=== PATIENT | male | born 1985 | race Caucasian/White ===

== ENCOUNTER 2018-10-23 22:29 | Emergency (ER) | payer OTHER ==
[2018-10-23 22:52] VITALS: BMI 29.0
[2018-10-23] MEDS ORDERED: SODIUM CHLORIDE 1,000 ML IV STA (23:45)
[2018-10-23] MEDS ORDERED: ONDANSETRON 4 MG/2 ML VIAL IVPUSH ONE (23:45)
--- NOTE | 2018-10-23 23:45 | PDOC ---
History of Present Illness - General Chief Complaint: Nausea/Vomiting Stated Complaint: [id number] Time Seen by Provider: 10/23/18 23:44 History Source: Patient Exam Limitations: No Limitations - History of Present Illness Initial Comments: 10/24/18 01:43 33YOM, with no significant past medical history, who presents to the emergency department with, nonproductive cough, nasal congestion, nausea, vomiting, and chills x 1 day. Patient notes his cough and nasal congestion has been ongoing for 5 days initially onset while in vacation in the [place]. Upon his arrival home today, he endorses generalized malaise/weakness and nausea with an associated 7 episodes of NBNB emesis, diffuse abdominal pain, and subjective fever/chills. He notes taking NyQuil and Robitussin, without relief prompting his visit to the ER. +travel history, recently returned today from [place]. +sick contact, with similar respiratory sx. He denies any recent headache or dizziness. He denies any recent diarrhea or constipation. He denies any recent chest pain or shortness of breath. He denies any recent dysuria, frequency, urgency or hematuria. Allergies: NKDA Past surgical history: None reported. Social History: Nonsmoker. Denies EtOH use and recreational drug use. Constitutional: +Chills. +weakness/malaise HEENT: no headache or dizziness. +congestion. No visual/hearing disturbances. CVS: no cp or syncope. Resp: no sob. + cough. Gastrointestinal: +abdominal pain,+ nausea +vomiting. Genitourinary: no urinary sx, hematuria. MUSCULOSKELETAL: No joint pain and swelling. No neck or back pain. SKIN: no redness or skin changes, no discharge, no rash. No wounds. Hematologic: no easy bruising/bleeding. HEMATOLOGIC/LYMPHATIC: No anemia, easy bruising/bleeding, or history of blood clots. NEUROLOGIC: No headache, dizziness, LOC or altered mental status. No weakness, numbness or tingling. Allergic/Immunologic: no allergies All other systems reviewed and negative, or as documented in HPI. General: Well appearing, awake and alert, NAD. HEENT: NCAT, PERRL, EOMI, clear conjunctiva, anicteric, moist mucus membranes, clear oropharynx, no oral lesions.. Neck: neck supple, FROM; no meningeal signs Resp: CTAB, normal and even respirations, no respiratory distress CVS: +tachycardic., no murmurs, 2+ peripheral pulses throughout, no peripheral edema Abdomen: soft, NTND, no rebound or guarding. No CVAT. Back: nontender, normal inspection and ROM MSK: no edema, GONZALEZ x4, ROM intact. No clubbing or cyanosis. normal bulk and tone. Extremities: no calf tenderness Neuro: alert Skin: warm and well perfused, cap refill <2 sec, normal color Past History - Past Medical History Allergies/Adverse Reactions: Allergies Allergy/AdvReac Type Severity Reaction Status Date / Time No Known Allergies Allergy Verified 10/23/18 22:52 Home Medications: Ambulatory Orders Ondansetron [Zofran Odt -] 4 mg SL TID PRN #9 od.tablet 10/24/18 COPD: No - Suicide/Smoking/Psychosocial Hx Smoking History: Never smoked Have you smoked in the past 12 months: No Information on smoking cessation initiated: No Hx Alcohol Use: No Drug/Substance Use Hx: No *Physical Exam - Vital Signs Last Vital Signs Temp Pulse Resp BP Pulse Ox 100.2 F H 103 H 21 H 132/81 100 10/23/18 22:48 10/23/18 22:48 10/23/18 22:48 10/23/18 22:48 10/23/18 22:48 - Physical Exam Comments: 10/24/18 00:49 General: awake and alert, malaised appearing HEENT: NCAT, PERRL, EOMI, clear conjunctiva, anicteric, moist mucus membranes, clear oropharynx, no oral lesions.. Neck: neck supple, FROM, no meningeal signs Resp: CTAB, normal and even respirations, no respiratory distress CVS: +tachycardic, no murmurs, 2+ peripheral pulses throughout, no peripheral edema Abdomen: soft, NTND, no peritoneal signs. no CVAT. Back: nontender, normal inspection and ROM MSK: no edema, GONZALEZ x4, ROM intact. No clubbing or cyanosis. normal bulk and tone. Extremities: no calf tenderness Neuro: alert. Skin: warm and well perfused, cap refill <2 sec, normal color Moderate Sedation - Procedure Monitoring Vital Signs: Procedure Monitoring Vital Signs Temperature 100.2 F H 10/23/18 22:48 Pulse Rate 103 H 01/01/19 22:48 Respiratory Rate 21 H 10/23/18 22:48 Blood Pressure 132/81 10/23/18 22:48 O2 Sat by Pulse Oximetry (%) 100 10/23/18 22:48 ED Treatment Course - LABORATORY CBC & Chemistry Diagram: 10/24/18 00:30 10/24/18 00:30 Medical Decision Making - Medical Decision Making 10/24/18 00:50 See HPI for details DDx bronchitis, pna, viral syndrome, URI, influenza, dehydration, electrolyte/ metabolic derangements, bronchitis. pleurisy. Vital signs reviewed, +fever and tachycardia. Prior notes reviewed, including admissions, discharges and consultations. laboratory results and imaging reviewed, basic labs and lytes wnl, normal Lipase and LFTs. UA_+ketones, otherwise no s/s infection CXR_neg for infiltrate influenza_positive for flu A ED course: IVF, hydration, tylenol and zofran, with clinical improvement. VS repeated, normalizing. tolerating PO intake offered tamiflu, declined, as sx onset 1-5 days, worse over 1 day. which is appropriate continued supportive care and hydration, otc analgesia/antipyretics. avoid triggers, cover cough and wash hands/respiratory precautions at home. Dispo: Pt to be discharged in stable condition. Patient and family made aware of impression and plan, return precautions discussed (including but not limited to worsening pain or symptoms), fevers, or signs of infection, chest pain, respiratory distress, inability to tolerate oral intake, dehydration, syncope, or neurologic changes). Follow up with PMD and/or specialist as recommended, follow up information provided, take medications as instructed for duration of time. continue with supportive care, avoid triggers and precipitants. All questions answered to patient's satisfaction and expressed understanding and comfort with this. 10/24/18 02:43 10/24/18 03:01 *DC/Admit/Observation/Transfer Diagnosis at time of Disposition: Influenza A - Discharge Dispostion Disposition: HOME Condition at time of disposition: Improved Decision to Admit order: No - Prescriptions Prescriptions: Ondansetron [Zofran Odt -] 4 mg SL TID PRN #9 od.tablet PRN Reason: Nausea And/Or Vomiting - Referrals Referrals: [facility] [place] [facility] [Provider Group] [facility] - Patient Instructions Printed Discharge Instructions: DI for Influenza -- Adult Additional Instructions: Your laboratory / imaging results were normal, your chest xray was negative for infection or pneumonia. your influenza test was positive. you have declined tamiflu which is appropriate and the influenza will run its course (1-2 weeks) cover your cough salt water gargles and warm lemon tea is appropriate as well. minimize spread of infection given contagious nature, and cover your mouth and wash your hands adequately with soap and water. Stay well hydrated and rest. do not go out or back to work until your fever has cleared <100.4 for 24 hours. Follow up with your primary care physician as instructed, take your medications as instructed including zofran every 8 hours as needed for nausea. Return if worsening symptoms including fevers, headache, vomiting, visual or hearing disturbances, abdominal pain, chest pain, shortness of breath, respiratory distress, syncope/fainting, dehydration, inability to take things by mouth/vomiting, altered mental status, lethargy, or worsening concerning symptoms. your medications on discharge include_ side effects may include upset stomach, abdominal pain, vomiting, or diarrhea. do not drink alcohol with your medications. - Post Discharge Activity Forms/Work/School Notes: Back to Work - Attestations Physician Attestion: 10/24/18 03:01 I, Yeni Brice MD, attest that this document has been prepared under my direction and personally reviewed by me in its entirety. I further attest, that it accurately reflects all work, treatment, procedures and medical decision -making performed by me.
[2018-10-23] MEDS ORDERED: ACETAMINOPHEN 325 MG TABLET (FP) PO ONE (23:47)
[2018-10-24] MEDS ORDERED: ACETAMINOPHEN 325 MG TABLET (FP) ONE (00:18)
[2018-10-24] MEDS ORDERED: ONDANSETRON 4 MG/2 ML VIAL ONE (00:19)
[2018-10-24] MEDS ORDERED: ACETAMINOPHEN 1000 MG/100 ML VIAL (NON FORMULARY) IVPB ONE (00:39)
[2018-10-24] MEDS ORDERED: ACETAMINOPHEN INJECTION 100 ML IVPB ONE (00:41)
[2018-10-24 00:52] LABS: BASO % 0.5 % (0-2.0); EOS % 0.6 % (0-4.5); HEMATOCRIT 37.4 % (35.4-49); HEMOGLOBIN 13.6 GM/dL (11.7-16.9); LYMPH % 6.9 % (8-40); MCH 30.6 pg (25.7-33.7); MCHC 36.4 g/dl (32.0-35.9); MEAN CELL VOLUME 84.1 fl (80-96); MEAN PLT VOLUME 8.1 fl (7.5-11.1); MONO % 7.4 % (3.8-10.2); NEUT % 84.6 % (42.8-82.8); PLATELET COUNT 278 K/MM3 (134-434); RBC 4.44 M/mm3 (4.00-5.60); WHITE BLOOD COUNT 6.4 K/mm3 (4.0-10.0)
[2018-10-24 01:23] LABS: ALBUMIN 3.9 g/dl (3.4-5.0); ALK PHOS 56 U/L (45-117); ANION GAP 8 MMOL/L (8-16); BILIRUBIN,TOTAL 0.6 mg/dL (0.2-1); BLOOD UREA NITROGEN 8 mg/dL (7-18); CALCIUM 8.6 mg/dL (8.5-10.1); CHLORIDE 102 mmol/L (98-107); CO2 26 mmol/L (21-32); GLUCOSE,RANDOM 102 mg/dL (74-106); LIPASE 143 U/L (73-393); POTASSIUM 4.1 mmol/L (3.5-5.1); SGOT/AST 36 U/L (15-37); SGPT/ALT 26 U/L (13-61); SODIUM 136 mmol/L (136-145); TOT PROT 7.4 g/dl (6.4-8.2)
[2018-10-24 01:27] LABS: URINE APPEARANCE CLEAR; URINE BILIRUBIN NEGATIVE (<2.0 mg/dL); URINE COLOR YELLOW; URINE GLUCOSE (UA) NEGATIVE (NEGATIVE); URINE KETONE 2+ (NEGATIVE); URINE LEUK ESTERASE NEGATIVE (NEGATIVE); URINE NITRITE NEGATIVE (NEGATIVE); URINE PROTEIN NEGATIVE (NEGATIVE); URINE UROBILINOGEN NEGATIVE mg/dL (0.2-1.0)
[2018-10-24 01:59] VITALS: BP 123/85; PULSE 102; TEMP 99.2
== END 2018-10-24 03:27 | disposition home or self-care (01) ==
LOC: JER 22:29
PROC: 3E033NZ Introduction of Analgesics, Hypnotics, Sedatives into Peripheral Vein, Percutaneous Approach (ICD-10-PCS; principal; 2018-10-23)
PROC: 3E033GC Introduction of Other Therapeutic Substance into Peripheral Vein, Percutaneous Approach (ICD-10-PCS; 2018-10-23)
PROC: 3E0337Z Introduction of Electrolytic and Water Balance Substance into Peripheral Vein, Percutaneous Approach (ICD-10-PCS; 2018-10-23)
DX: J09.X2 Influenza due to identified novel influenza A virus with other respiratory manifestations (principal)
CPT/HCPCS: 36415; 71046-TC-FY; 80053; 81003; 83690; 85025; 87804; 99283-25; J0131; J7030

== ENCOUNTER 2019-09-15 01:42 | Inpatient (IN) | payer OTHER ==
[2019-09-15] MEDS ORDERED: SODIUM CHLORIDE 1,000 ML IV STA (02:08)
[2019-09-15] MEDS ORDERED: FAMOTIDINE 20 MG/50 ML IVPB 20 MG/50 ML MG IVPB ONE ×2 (02:08→02:59)
[2019-09-15] MEDS ORDERED: ACETAMINOPHEN 1000 MG/100 ML VIAL (NON FORMULARY) IVPB ONE (02:08)
[2019-09-15] MEDS ORDERED: ACETAMINOPHEN INJECTION 100 ML IVPB ONE (02:14)
--- NOTE | 2019-09-15 02:15 | PDOC ---
Attending Attestation - Resident Resident Name: Alonzo Cid - ED Attending Attestation I have performed the following: I have examined & evaluated the patient, The case was reviewed & discussed with the resident, I agree w/resident's findings & plan - HPI HPI: 09/15/19 02:49 Pt comes with abdominal pain; writhing in the bed. Ate rice and beans; ate pizza ; likely gas pain due to lactose intolerance. - Physicial Exam PE: 09/15/19 05:39 Pt has upper abd pain writhing in pain no flank pain afebrile heart and lungs normal - Medical Decision Making 09/15/19 02:45 Pt likely has gas but this could also be GB disease. 09/15/19 05:00 Patient Name: ADRI OLMSTEAD THIS IS A PRELIMINARY REPORT FROM [facility] DATE OF SERVICE: 2019-09-15 03:17:32 IMAGES: 529 EXAM: ABDOMEN \T\ PELVIS CT WITH CONTR HISTORY: Rule out pancreatitis COMPARISON: None. FINDINGS: Lung bases are clear. The visualized cardiac chambers are normal size and configuration. Gallbladder is distended, contains stones and does appear inflamed, consistent with acute cholecystitis. No evidence of pancreatitis but no biliary duct dilation. Normal liver, pancreas, spleen, adrenal glands and kidneys. The stomach and abdominal small and large bowel are normal. There is no aortic aneurysm. There is no significant retroperitoneal lymphadenopathy. The pelvic small and large bowel are normal. Appendix is normal.. The urinary bladder and prostate gland are normal. No pelvic free fluid is identified. There is no significant pelvic lymphadenopathy. IMPRESSION: Acute cholecystitis without biliary duct dilation or evidence of pancreatitis Pt will be admitted to [facility]
--- NOTE | 2019-09-15 02:24 | PDOC ---
History of Present Illness <Justa Marie - Last Filed: 09/15/19 05:17> - General History Source: Patient Exam Limitations: No Limitations - History of Present Illness Initial Comments: Juan Dietrich is a 34 yo M with no sig pmh who presents to the [facility] er with diffuse abdominal pain which started tonight at 10 pm. He states the pain is worse in the epigastric region and radiates all over his abdomen. The patient states that he was eating a slice of pizza at 10 pm when all of a sudden his pain worsened and he began to feel extremely uncomfortable. He states the pain feels like a sharp and burning sensation and rates it as a 10/10 in intensity. The pain does not radiate to the back or the shoulder. The pain is not associated with any nausea, vomiting, diarrhea or constipation. He denies recent fevers, chills, infections. Denies having a headache, blurry vision, chest pain, SOB, or difficulty breathing. Denies any hx of gallstones or heavy alcohol use. PCP: Follows at [facility] no PCP PSH: None reported Social Hx: Denies smoking, drinking, or other substance abuse. Allergies: NKA, NKDA <Alonzo Cid - Last Filed: 09/15/19 05:26> - General Chief Complaint: Pain Stated Complaint: ABD PAIN Time Seen by Provider: 09/15/19 02:08 Past History <Justa Marie - Last Filed: 09/15/19 05:17> - Past Medical History COPD: No - Psycho Social/Smoking Cessation Hx Smoking History: Never smoked Have you smoked in the past 12 months: No Hx Alcohol Use: No Drug/Substance Use Hx: No <Alonzo Cid - Last Filed: 09/15/19 05:26> - Past Medical History Allergies/Adverse Reactions: Allergies Allergy/AdvReac Type Severity Reaction Status Date / Time No Known Allergies Allergy Verified 09/15/19 02:18 Home Medications: Ambulatory Orders NK [No Known Home Medication] 09/15/19 Review of Systems - Review of Systems Able to Perform ROS?: Yes Comments:: CONSTITUTIONAL: Absent: fever, no chills, no fatigue EYES: Absent: visual changes ENT: Absent: ear pain, no sore throat CARDIOVASCULAR: Absent: chest pain, no palpitations RESPIRATORY: Absent: cough, no SOB GI: Present: Abdominal pain Absent: no nausea, no vomiting, no constipation, no diarrhea GENITOURINARY: Absent: dysuria, no frequency, no hematuria MUSKULOSKELETAL: Absent: back pain, no arthralgia, no myalgia SKIN: Absent: rash NEURO: Absent: headache <Alonzo Cid - Last Filed: 09/15/19 05:26> *Physical Exam - Vital Signs Last Vital Signs Temp Pulse Resp BP Pulse Ox 97.6 F 74 18 137/80 100 09/15/19 01:50 09/15/19 01:50 09/15/19 01:50 09/15/19 01:50 09/15/19 01:50 <Justa Marie - Last Filed: 09/15/19 05:17> - Vital Signs Last Vital Signs Temp Pulse Resp BP Pulse Ox 74 18 137/80 100 09/15/19 01:50 09/15/19 01:50 09/15/19 01:50 09/15/19 01:50 - Physical Exam Comments: GENERAL: Patient is rolling around in bed and look like he is in a significant amount of pain. moderate apparent distress. HEENT: Normocephalic, atraumatic. PERRL, EOM intact. CARDIOVASCULAR: Normal S1, S2. Regular rate and rhythm. PULMONARY: No evidence of respiratory distress. Lungs clear to auscultation bilaterally. No wheezing, rales or rhonchi. ABDOMEN: There is a significant amount of TTP in the epigastric region. Negative baum sign. The abdomen is overall soft and there is minimal TTP in the kayla- umbilical and lower quadrants. Normal bowel sounds. EXTREMITIES: Normal ROM in all four extremities. No gross deformities. SKIN: Warm, dry. No rash NEUROLOGICAL: No focal neurological deficits. <Alonzo Cid - Last Filed: 09/15/19 05:26> ED Treatment Course - LABORATORY CBC & Chemistry Diagram: 09/15/19 02:15 09/15/19 02:15 - ADDITIONAL ORDERS Additional order review: Laboratory Results 09/15/19 09/15/19 09/15/19 03:15 02:15 02:15 Sodium Potassium Chloride Carbon Dioxide Anion Gap BUN Creatinine Est GFR (CKD-EPI)AfAm Est GFR (CKD-EPI)NonAf Random Glucose Lactic Acid Calcium Phosphorus 1.6 L Magnesium 1.6 L Total Bilirubin AST ALT Alkaline Phosphatase Creatine Kinase Troponin I Total Protein Albumin Lipase 201 Urine Color Yellow Urine Appearance Clear Urine pH 8.0 D Ur Specific [place] 1.016 Urine Protein Negative Urine Glucose (UA) Negative Urine Ketones Negative Urine Blood Negative Urine Nitrite Negative Urine Bilirubin Negative Urine Urobilinogen 0.2 Ur Leukocyte Esterase Negative 09/15/19 09/15/19 02:15 02:15 Sodium 140 Potassium 3.6 Chloride 107 Carbon Dioxide 25 Anion Gap 8 BUN 8.5 Creatinine 1.0 Est GFR (CKD-EPI)AfAm 111.73 Est GFR (CKD-EPI)NonAf 96.40 Random Glucose 123 H Lactic Acid 2.7 H* Calcium 9.9 Phosphorus Magnesium Total Bilirubin 0.3 AST 13 L ALT 28 Alkaline Phosphatase 78 Creatine Kinase 87 Troponin I < 0.02 Total Protein 8.4 H Albumin 4.4 Lipase Urine Color Urine Appearance Urine pH Ur Specific [place] Urine Protein Urine Glucose (UA) Urine Ketones Urine Blood Urine Nitrite Urine Bilirubin Urine Urobilinogen Ur Leukocyte Esterase 09/15/19 02:15 RBC 4.86 MCV 85.2 MCHC 34.9 RDW 13.2 MPV 7.7 Neutrophils % 58.2 D Lymphocytes % 32.7 D Monocytes % 5.6 Eosinophils % 3.0 D Basophils % 0.5 - Medications Given in the ED: ED Medications Discontinued Medications Generic Name Dose Route Start Last Admin Trade Name Terrell PRN Reason Stop Dose Admin Acetaminophen 1,000 mg 09/15/19 02:08 09/15/19 02:24 Ofirmev Injection - IVPB 09/15/19 02:09 1,000 mg ONCE ONE Administration Al Hydroxide/Mg Hydroxide 30 ml 09/15/19 02:44 09/15/19 04:23 Mylanta Oral Suspension - PO 09/15/19 02:45 30 ml ONCE ONE Administration Al Hydroxide/Mg Hydroxide 30 ml 09/15/19 02:44 09/15/19 02:57 Mylanta Suspension - PO 09/15/19 02:45 Not Given ONCE ONE Famotidine/Sodium Chloride 20 mg in 50 mls @ 100 mls/hr 09/15/19 02:08 03:06 Pepcid 20 Mg Premixed Ivpb - IVPB 09/15/19 02:37 100 mls/hr ONCE ONE Administration Sodium Chloride 1,000 mls @ 1,000 mls/hr 09/15/19 02:08 09/15/19 02:24 Normal Saline - IV 09/15/19 03:07 1,000 mls/hr ASDIR STA Administration Magnesium Sulfate/Dextrose 1 100 mls @ 100 mls/hr 09/15/19 03:03 09/15/19 04: 15 gm/ Miscellaneous IVPB 09/15/19 04:02 100 mls/hr ONCE ONE Administration Piperacillin Sod/Tazobactam 50 mls @ 100 mls/hr 09/15/19 04:38 09/15/19 05:14 Sod 3.375 gm/ Dextrose IVPB 09/15/19 05:07 100 mls/hr ONCE ONE Administration Protocol Potassium Phos/Sodium Phos 1 packet 09/15/19 03:16 09/15/19 04:23 Phos-Nak Packet - PO 09/15/19 03:17 1 packet ONCE ONE Administration Sodium Chloride 1,000 ml 09/15/19 04:55 09/15/19 05:14 Normal Saline - IV 09/15/19 04:56 1,000 ml ONCE ONE Administration <Justa Marie - Last Filed: 09/15/19 05:17> - LABORATORY CBC & Chemistry Diagram: 09/15/19 02:15 09/15/19 02:15 - Medications Given in the ED: ED Medications Discontinued Medications Generic Name Dose Route Start Last Admin Trade Name Freq PRN Reason Stop Dose Admin Acetaminophen 1,000 mg 09/15/19 02:08 09/15/19 02:24 Ofirmev Injection - IVPB 09/15/19 02:09 1,000 mg ONCE ONE Administration <Alonzo Cid - Last Filed: 09/15/19 05:26> Medical Decision Making - Medical Decision Making Juan Dietrich is a 34 yo M with no sig pmh who presents to the [facility] er with diffuse abdominal pain which started tonight at 10 pm. He states the pain is worse in the epigastric region and radiates all over his abdomen. The patient states that he was eating a slice of pizza at 10 pm when all of a sudden his pain worsened and he began to feel extremely uncomfortable. He states the pain feels like a sharp and burning sensation and rates it as a 10/10 in intensity. The pain does not radiate to the back or the shoulder. The pain is not associated with any nausea, vomiting, diarrhea or constipation. He denies recent fevers, chills, infections. Denies having a headache, blurry vision, chest pain, SOB, or difficulty breathing. Denies any hx of gallstones or heavy alcohol use. Vital Signs Temp Pulse Resp BP Pulse Ox 97.6 F 74 18 137/80 100 09/15/19 01:50 09/15/19 01:50 09/15/19 01:50 09/15/19 01:50 09/15/19 01:50 DDx IBNLT: pancreatitis, cholecystitis, appendicitis, gastritis, PUD, GERD, gastroenteritis, electrolyte/metabolic disturbance, perforated bowel, anemia Plan: Labs, urine, EKG, POCUS RUQ, CTAP, analgesia, IV hydration, re-assess. Labs: Elevated lactic acid, decreased mag and phos POCUS RUQ: Wall thickening, pericholecystic fluid, wall edema, negative baum sign suggestive of acute cholecsytitis CTAP: Supports cholecystitis, no pancreatitis Re-assessment: Patient feels much better after analgesia Surgical consult: Dr. christianson - requests NPO, IV hydration, zosyn, will follow Disposition: Med/Surg <Alonzo Cid - Last Filed: 09/15/19 05:26> Discharge - Discharge Information Problems reviewed: Yes - Admission Yes <Justa Marie - Last Filed: 09/15/19 05:17> - Discharge Information Problems reviewed: Yes - Admission Yes <Alonzo Cid - Last Filed: 09/15/19 05:26> - Discharge Information Clinical Impression/Diagnosis: Cholecystitis Condition: Guarded
[2019-09-15 02:41] LABS: BASO % 0.5 % (0-2.0); HEMATOCRIT 41.4 % (35.4-49); HEMOGLOBIN 14.4 GM/dL (11.7-16.9); LYMPH % 32.7 % (8-40); MCH 29.7 pg (25.7-33.7); MCHC 34.9 g/dl (32.0-35.9); MEAN CELL VOLUME 85.2 fl (80-96); MEAN PLT VOLUME 7.7 fl (7.5-11.1); MONO % 5.6 % (3.8-10.2); NEUT % 58.2 % (42.8-82.8); PLATELET COUNT 324 K/MM3 (134-434); RBC 4.86 M/mm3 (4.00-5.60); RDW 13.2 % (11.9-15.9); WHITE BLOOD COUNT 6.9 K/mm3 (4.0-10.0)
[2019-09-15] MEDS ORDERED: MAG HYDROX/AL HYDROX/SIMETH -MYLANTA- ORAL SUSPENSION PO ONE (02:44)
[2019-09-15] MEDS ORDERED: MAG HYDROX/AL HYDROX/SIMETH 30 ML UNIT-DOSE CUP PO ONE (02:44)
[2019-09-15] MEDS ORDERED: MAG HYDROX/AL HYDROX/SIMETH 30 ML UNIT-DOSE CUP ONE (02:59)
[2019-09-15 03:02] LABS: MAGNESIUM 1.6 mg/dL (1.8-2.4)
[2019-09-15 03:08] LABS: ALBUMIN 4.4 g/dl (3.4-5.0); ALK PHOS 78 U/L (45-117); ANION GAP 8 MMOL/L (8-16); BILIRUBIN,TOTAL 0.3 mg/dL (0.2-1); BLOOD UREA NITROGEN 8.5 mg/dL (7-18); CALCIUM 9.9 mg/dL (8.5-10.1); CHLORIDE 107 mmol/L (98-107); CO2 25 mmol/L (21-32); GLUCOSE,RANDOM 123 mg/dL (74-106); POTASSIUM 3.6 mmol/L (3.5-5.1); SGOT/AST 13 U/L (15-37); SGPT/ALT 28 U/L (13-61); SODIUM 140 mmol/L (136-145); TOT PROT 8.4 g/dl (6.4-8.2)
[2019-09-15] MEDS ORDERED: NAPH,MB-DB/K PH,MBDB POWDER PACKET PO ONE (03:16)
[2019-09-15 03:26] LABS: URINE APPEARANCE CLEAR; URINE BILIRUBIN NEGATIVE (NEGATIVE); URINE COLOR YELLOW; URINE GLUCOSE (UA) NEGATIVE (NEGATIVE); URINE KETONE NEGATIVE (NEGATIVE); URINE LEUK ESTERASE NEGATIVE (NEGATIVE); URINE NITRITE NEGATIVE (NEGATIVE); URINE PROTEIN NEGATIVE (NEGATIVE); URINE UROBILINOGEN 0.2 mg/dL (0.2-1.0)
[2019-09-15] MEDS ORDERED: MAGNESIUM 1GM/D5W - 1 GM/100 ML IVPB IVPB ONE (04:08)
[2019-09-15] MEDS ORDERED: PIPERACILLIN/TAZOB 3.375 GM 3.375 GM in DEXTROSE 5%-WATER - 50 ML IVPB ONE (04:38)
[2019-09-15] MEDS ORDERED: PIPERACILLIN/TAZOB 3.375 GM 3.375 GM/50 ML BAG IVPB ONE ×2 (04:41→13:11)
[2019-09-15] MEDS ORDERED: SODIUM CHLORIDE 0.9% 500 ML INFUS.BAG IV ONE (04:55)
[2019-09-15] MEDS ORDERED: LACTATED RINGERS SOLUTION 1,000 ML/1,000 ML INFUS.BAG IV SCH (05:45)
[2019-09-15] MEDS: LACTATED RINGERS SOLUTION 1,000 ML/1,000 ML INFUS.BAG IV SCH (08:45)
--- NOTE | 2019-09-15 09:11 | HP ---
CHIEF COMPLAINT: epigastric pain PCP: none HISTORY OF PRESENT ILLNESS: Mr. Dietrich is a 34 y/o male with no significant PMH who presents with gradual onset of severe epigastric pain. He reports pain began within a couple hours of eating take out pizza last night around 10pm and was cramping in nature. It radiated to the umbilical area. He also reports 4 episodes of vomiting prior to presentation with no blood noted. He took eucalyptus charcoal which was noted in vomitus. No one else was sick. He reports a similar episode about 2 weeks ago that resolved on its own. He also reports increased bowel movements in the last several days which were not liquid or dark. He denies fever, chills, chest pain, dysuria, and LE edema. He reports his mother had her gallbladder removed. 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 Lives with his . Allergies No Known Allergies Allergy (Verified 09/15/19 02:18) HOME MEDICATIONS: Home Medications Medication Instructions Recorded NK [No Known Home Medication] 09/15/19 REVIEW OF SYSTEMS CONSTITUTIONAL: Absent: fever, chills HEENT: Absent: rhinorrhea, nasal congestion, throat pain CARDIOVASCULAR: Absent: chest pain RESPIRATORY: Absent: cough GASTROINTESTINAL: Present: abdominal pain, nausea, vomiting, increased bowel movements Absent: melena, hematochezia GENITOURINARY: Absent: dysuria MUSCULOSKELETAL: Absent: back pain SKIN: Absent: rash ENDOCRINE: Absent: unexplained weight gain, unexplained weight loss, heat intolerance, cold intolerance NEUROLOGIC: Absent: headache, dizziness, bladder or bowel incontinence PSYCHIATRIC: Absent: anxiety, depression PHYSICAL EXAMINATION Vital Signs - 24 hr 09/15/19 09/15/19 09/15/19 01:50 05:35 05:38 Temperature 97.6 F Pulse Rate 74 Pulse Rate [ 79 Radial] Respiratory 18 18 Rate Blood Pressure 137/80 Blood Pressure 119/77 [Right Arm] O2 Sat by Pulse 100 100 100 Oximetry (%) GENERAL: Awake, alert, and fully oriented, in no acute distress. HEAD: Normal with no signs of trauma. EYES: Pupils equal, round and reactive to light, extraocular movements intact, conjunctiva clear. EARS, NOSE, THROAT: Ears normal, nares patent, oropharynx clear without exudates. Moist mucous membranes. NECK: Normal range of motion LUNGS: Clear to auscultation bilaterally. HEART: Regular rate and rhythm, no murmur. ABDOMEN: Soft, nontender, not distended, normoactive bowel sounds, no guarding, negative Carbajal's sign. MUSCULOSKELETAL: Normal range of motion at all joints. UPPER EXTREMITIES: Warm, well-perfused LOWER EXTREMITIES: Warm, well-perfused. No peripheral edema. NEUROLOGICAL: Cranial nerves II-XII intact. Normal speech. PSYCHIATRIC: Cooperative. Good eye contact. Appropriate mood and affect. SKIN: Warm, dry, normal turgor Laboratory Results - last 24 hr 09/15/19 09/15/19 09/15/19 02:15 02:15 02:15 WBC 6.9 RBC 4.86 Hgb 14.4 Hct 41.4 MCV 85.2 MCH 29.7 MCHC 34.9 RDW 13.2 Plt Count 324 MPV 7.7 Absolute Neuts (auto) 4.0 Neutrophils % 58.2 D Lymphocytes % 32.7 D Monocytes % 5.6 Eosinophils % 3.0 D Basophils % 0.5 Nucleated RBC % 0 Sodium 140 Potassium 3.6 Chloride 107 Carbon Dioxide 25 Anion Gap 8 BUN 8.5 Creatinine 1.0 Est GFR (CKD-EPI)AfAm 111.73 Est GFR (CKD-EPI)NonAf 96.40 Random Glucose 123 H Lactic Acid 2.7 H* Calcium 9.9 Phosphorus Magnesium Total Bilirubin 0.3 AST 13 L ALT 28 Alkaline Phosphatase 78 Creatine Kinase 87 Troponin I < 0.02 Total Protein 8.4 H Albumin 4.4 Lipase Urine Color Urine Appearance Urine pH Ur Specific [place] Urine Protein Urine Glucose (UA) Urine Ketones Urine Blood Urine Nitrite Urine Bilirubin Urine Urobilinogen Ur Leukocyte Esterase 09/15/19 09/15/19 09/15/19 02:15 02:15 03:15 WBC RBC Hgb Hct MCV MCH MCHC RDW Plt Count MPV Absolute Neuts (auto) Neutrophils % Lymphocytes % Monocytes % Eosinophils % Basophils % Nucleated RBC % Sodium Potassium Chloride Carbon Dioxide Anion Gap BUN Creatinine Est GFR (CKD-EPI)AfAm Est GFR (CKD-EPI)NonAf Random Glucose Lactic Acid Calcium Phosphorus 1.6 L Magnesium 1.6 L Total Bilirubin AST ALT Alkaline Phosphatase Creatine Kinase Troponin I Total Protein Albumin Lipase 201 Urine Color Yellow Urine Appearance Clear Urine pH 8.0 D Ur Specific [place] 1.016 Urine Protein Negative Urine Glucose (UA) Negative Urine Ketones Negative Urine Blood Negative Urine Nitrite Negative Urine Bilirubin Negative Urine Urobilinogen 0.2 Ur Leukocyte Esterase Negative ASSESSMENT/PLAN: Mr. Dietrich is a 34y/o male with no significant PMH who presents with gradual onset of epigastric cramping that began following eating pizza. CT and U/S show gallbladder wall thickening with stones present and inflammation surrounding. Pt is admitted for acute cholecystitis. #acute cholecystitis Afebrile, hemodynamically stable, no leukocytosis. LA elevated initially, repeat lab is normal. -liquid diet, NPO after midnight for cholecystectomy planned in the morning -IV fluids -Zosyn 3.375mg daily -surgery consulted (Dr. Gonzalez) -ID consulted #hypophosphatemia -repleted -repeat labs normal, will follow #hypomagnesemia -repleted -repeat labs normal, will follow DVT Ppx heparin, will hold chemical AC prior to surgery FEN clear liquids, NPO after midnight, LR 200mL/hr monitor Phos, Mg dispo med/surg Visit type - Emergency Visit Emergency Visit: Yes ED Registration Date: 09/15/19 Care time: The patient presented to the Emergency Department on the above date and was hospitalized for further evaluation of their emergent condition. - New Patient This patient is new to me today: Yes Date on this admission: 09/15/19 - Critical Care Critical Care patient: No ATTENDING PHYSICIAN STATEMENT I saw and evaluated the patient. I reviewed the resident's note and discussed the case with the resident. I agree with the resident's findings and plan as documented. SUBJECTIVE: OBJECTIVE: ASSESSMENT AND PLAN:
[2019-09-15] MEDS ORDERED: ACETAMINOPHEN 1000 MG/100 ML VIAL (NON FORMULARY) IVPB PRN ×2 (09:21→09:47)
[2019-09-15] MEDS ORDERED: POTASSIUM PHOSPHATE 30 MM in SODIUM CHLORIDE 500 ML IVPB ONE (10:00)
--- NOTE | 2019-09-15 12:18 | PN ---
Teaching Attending Note Name of Resident: Luda Bashir ATTENDING PHYSICIAN STATEMENT I saw and evaluated the patient. I reviewed the resident's note and discussed the case with the resident. I agree with the resident's findings and plan as documented. SUBJECTIVE: 34 year old male with no significant PMH/PSH presets with rapid onset Epigastic and RUQ abdominal pain, with associated nausea/vomiting and loose stool. No hematochezia/melena. No hematemesis. No fever/chills. Abdominal pain now resolved, no further nausea/vomiting. OBJECTIVE: Afebrile, Hemodynamically Stable. Last Vital Signs Temp Pulse Resp BP Pulse Ox 97.6 F 79 18 119/77 100 09/15/19 01:50 09/15/19 05:35 09/15/19 05:35 09/15/19 05:35 09/15/19 05:38 HEENT- Atramatic, normocephalic. Heart - S1, S2, RRR lungs -clear to auscultation Abdomen - Soft, non-tender. Bowel sounds normal. Extremities - No edema, no calf tenderness. Neuro - AAO x 3. Tone/Power normal all 4 extremities. Laboratory Results - last 24 hr 09/15/19 09/15/19 09/15/19 02:15 02:15 02:15 WBC 6.9 RBC 4.86 Hgb 14.4 Hct 41.4 MCV 85.2 MCH 29.7 MCHC 34.9 RDW 13.2 Plt Count 324 MPV 7.7 Absolute Neuts (auto) 4.0 Neutrophils % 58.2 D Lymphocytes % 32.7 D Monocytes % 5.6 Eosinophils % 3.0 D Basophils % 0.5 Nucleated RBC % 0 Sodium 140 Potassium 3.6 Chloride 107 Carbon Dioxide 25 Anion Gap 8 BUN 8.5 Creatinine 1.0 Est GFR (CKD-EPI)AfAm 111.73 Est GFR (CKD-EPI)NonAf 96.40 Random Glucose 123 H Lactic Acid 2.7 H* Calcium 9.9 Phosphorus Magnesium Total Bilirubin 0.3 AST 13 L ALT 28 Alkaline Phosphatase 78 Creatine Kinase 87 Troponin I < 0.02 Total Protein 8.4 H Albumin 4.4 Lipase Urine Color Urine Appearance Urine pH Ur Specific [place] Urine Protein Urine Glucose (UA) Urine Ketones Urine Blood Urine Nitrite Urine Bilirubin Urine Urobilinogen Ur Leukocyte Esterase 09/15/19 09/15/1909/15/19 02:15 02:15 03:15 WBC RBC Hgb Hct MCV MCH MCHC RDW Plt Count MPV Absolute Neuts (auto) Neutrophils % Lymphocytes % Monocytes % Eosinophils % Basophils % Nucleated RBC % Sodium Potassium Chloride Carbon Dioxide Anion Gap BUN Creatinine Est GFR (CKD-EPI)AfAm Est GFR (CKD-EPI)NonAf Random Glucose Lactic Acid Calcium Phosphorus 1.6 L Magnesium 1.6 L Total Bilirubin AST ALT Alkaline Phosphatase Creatine Kinase Troponin I Total Protein Albumin Lipase 201 Urine Color Yellow Urine Appearance Clear Urine pH 8.0 D Ur Specific [place] 1.016 Urine Protein Negative Urine Glucose (UA) Negative Urine Ketones Negative Urine Blood Negative Urine Nitrite Negative Urine Bilirubin Negative Urine Urobilinogen 0.2 Ur Leukocyte Esterase Negative Current Medications Generic Name Dose Route Start Last Admin Trade Name Freq PRN Reason Stop Dose Admin Acetaminophen 1,000 mg 09/15/19 09:47 Ofirmev Injection - IVPB Q6H PRN PAIN LEVEL 6-10 Lactated Ringer's 1,000 ml in 1,000 mls @ 200 mls/hr 09/15/19 08:34 09/15/19 08:45 Lactated Ringers Solution IV 200 mls/hr ASDIR ILDEFONSO Administration Potassium Phosphate 30 mm/ 510 mls @ 63.75 mls/hr 09/15/19 10:00 Sodium Chloride IVPB 09/15/19 17:59 ONCE ONE Piperacillin Sod/Tazobactam 50 mls @ 100 mls/hr 09/15/19 12:00 Sod 3.375 gm/ Dextrose IVPB 09/16/19 02:29 Q8H-IV ILDEFONSO Piperacillin Sod/Tazobactam 50 mls @ 100 mls/hr 09/16/19 10:00 Sod 3.375 gm/ Dextrose IVPB Q8H-IV ILDEFONSO Protocol Home Medications Medication Instructions Recorded NK [No Known Home Medication] 09/15/19 ASSESSMENT AND PLAN: 34 year old male with no significant PMH/PSH presets with rapid onset Epigastic and RUQ abdominal pain, with associated nausea/vomiting and loose stool. No hematochezia/melena. No hematemesis. No fever/chills. 1. Acute Cholecystitis Afebrile, Hemodynamically Stable Abdo US - Thick-walled distended GB with calculi and sludge suspicious for acute cholecystitis. CT A/P pending Sips of clears/IV fluids/IV Zosyn. NPO after midnight. Lactic Acid 2.7, will repeat. Surgery consulted - scheduled for OR 09/16/19. 2. Electrolyte disturbances - Hypomagnesemia/Hypophosphatemia - repleted. 3. DVT Px - Heparin SQ
--- NOTE | 2019-09-15 12:22 | CONSULT ---
- Consultation REQUESTING PROVIDER: Jose Roberto CURTIS CONSULT REQUEST: We have been asked to surgically evaluate this patient for abdominal pain of biliary tract origin. PCP: HISTORY OF PRESENT ILLNESS: RONY who is a 34 y/o male who presented to the [facility] ED w/post prandial epigastric and RUQ abdominal pain after eating pizza ; he may have had this last week and it resolved spontaneously; pain is sharp/ colicky in the epigastic area and RUQ w/ radiation to his back and right shoulder; he denies any other GI/ c/o; he denies dark urine and/or light stools. PMHx: none PSHx: none Home Medications Medication Instructions Recorded NK [No Known Home Medication] 09/15/19 Allergies Allergy/AdvReac Type Severity Reaction Status Date / Time No Known Allergies Allergy Verified 09/15/19 02:18 REVIEW OF SYSTEMS: CONSTITUTIONAL: Absent: fever, chills, diaphoresis, generalized weakness, malaise, loss of appetite, weight change CARDIOVASCULAR: Absent: chest pain, syncope, palpitations, irregular heart rate, lightheadedness , peripheral edema RESPIRATORY: Absent: cough, shortness of breath, dyspnea with exertion, wheezing, stridor, hemoptysis GASTROINTESTINAL: Present: abdominal pain, nausea, vomiting, GENITOURINARY: Absent: dysuria, frequency, urgency, hesitancy, hematuria, flank pain, genital pain MUSCULOSKELETAL: Absent: myalgia, arthralgia, joint swelling, back pain, neck pain SKIN: Absent: rash, itching, pallor HEMATOLOGIC/IMMUNOLOGIC: Absent: easy bleeding, easy bruising, lymphadenopathy NEUROLOGIC: Absent: headache, focal weakness, paresthesias, dizziness, unsteady gait, seizure, mental status changes, bladder or bowel incontinence PSYCHIATRIC: Absent: anxiety, depression, suicidal or homicidal ideation, hallucinations. PHYSICAL EXAM: GENERAL: Awake, alert, and fully oriented, in no acute distress. HEAD: Normal with no signs of trauma. EYES: sclera anicteric, conjunctiva clear. NECK: Normal ROM, supple without lymphadenopathy, JVD, or masses. ABDOMEN: Soft,minimal RUQ tenderness to palpation, not distended, normoactive bowel sounds, involuntary guarding, no rebound, no masses. No organomegaly. No hernias MUSCULOSKELETAL: Normal ROM at all joints. No bony deformities or tenderness. No CVA tenderness. UPPER EXTREMITIES: 2+ pulses, warm, well-perfused. No cyanosis. Cap refill <2 seconds. No peripheral edema. LOWER EXTREMITIES: 2+ pulses, warm, well-perfused. No calf tenderness. No peripheral edema. NEUROLOGICAL: Normal speech, gait not observed. PSYCH: Cooperative. Good eye contact. Appropriate mood and affect. SKIN: Warm, dry, normal turgor, no rashes or lesions noted. Vital Signs Temperature 97.6 F 09/15/19 01:50 Pulse Rate 79 09/15/19 05:35 Respiratory Rate 18 09/15/19 05:35 Blood Pressure 119/77 09/15/19 05:35 O2 Sat by Pulse Oximetry (%) 100 09/15/19 05:38 Lab Results WBC 6.9 K/mm3 (4.0-10.0) 09/15/19 02:15 RBC 4.86 M/mm3 (4.00-5.60) 09/15/19 02:15 Hgb 14.4 GM/dL (11.7-16.9) 09/15/19 02:15 Hct 41.4 % (35.4-49) 09/15/19 02:15 MCV 85.2 fl (80-96) 09/15/19 02:15 MCHC 34.9 g/dl (32.0-35.9) 09/15/19 02:15 RDW 13.2 % (11.9-15.9) 09/15/19 02:15 Plt Count 324 K/MM3 (134-434) 09/15/19 02:15 Sodium 140 mmol/L (136-145) 09/15/19 02:15 Potassium 3.6 mmol/L (3.5-5.1) 09/15/19 02:15 Chloride 107 mmol/L (98-107) 09/15/19 02:15 Carbon Dioxide 25 mmol/L (21-32) 09/15/19 02:15 Anion Gap 8 MMOL/L (8-16) 09/15/19 02:15 BUN 8.5 mg/dL (7-18) 09/15/19 02:15 Creatinine 1.0 mg/dL (0.55-1.3) 09/15/19 02:15 Random Glucose 123 mg/dL (74-106) H 09/15/19 02:15 Calcium 9.9 mg/dL (8.5-10.1) 09/15/19 02:15 US reviewed showing cholelithiasis and cholecystitis IMP: cholelithiasis; acute cholecystitis PLAN:NPO/IVF/IVAB's and recommend lap kelli possible; which the patient is amenable to as definitive tx. for his dx.; r/b/t/a's d/w him and his and he will give informed consent. Tan Gonzalez MD FACS
--- NOTE | 2019-09-15 13:45 | EKG ---
Test Reason : Blood Pressure : / mmHG Vent. Rate : 066 BPM Atrial Rate : 066 BPM P-R Int : 196 ms QRS Dur : 090 ms QT Int : 386 ms P-R-T Axes : 079 054 041 degrees QTc Int : 404 ms NORMAL SINUS RHYTHM NORMAL ECG NO PREVIOUS ECGS AVAILABLE Confirmed by MD Elizabeth, Baltazar ([id number]) on 09/15/2019 1:44:54 PM Referred By: Confirmed By:Baltazar Johnson MD
[2019-09-15] MEDS: PIPERACILLIN/TAZOB 3.375 GM 3.375 GM in DEXTROSE 5%-WATER - 50 ML IVPB SCH (13:57)
[2019-09-15] MEDS ORDERED: HEPARIN NA (PORCINE) 5,000 UNITS/ML 1ML VIAL ONE ×2 (18:27→22:20)
[2019-09-15] MEDS: HEPARIN NA (PORCINE) 5,000 UNITS/ML 1ML VIAL SQ SCH ×2 (18:30→23:04)
[2019-09-16] MEDS ORDERED: DEXTROSE 5%-WATER - 50 ML IVPB ONE (01:12)
[2019-09-16] MEDS ORDERED: PIPERACILLIN/TAZOBACTAM 3.375 GM VIAL IVPB ONE (01:12)
[2019-09-16] MEDS: PIPERACILLIN/TAZOB 3.375 GM 3.375 GM in DEXTROSE 5%-WATER - 50 ML IVPB SCH (02:07)
[2019-09-16] MEDS: LACTATED RINGERS SOLUTION 1,000 ML/1,000 ML INFUS.BAG IV SCH ×2 (02:08→06:44)
[2019-09-16 04:27] VITALS: BMI 29.1
[2019-09-16 08:32] LABS: HEMATOCRIT 36.6 % (35.4-49); HEMOGLOBIN 12.9 GM/dL (11.7-16.9); MCHC 35.1 g/dl (32.0-35.9); MEAN CELL VOLUME 85.5 fl (80-96); MEAN PLT VOLUME 7.7 fl (7.5-11.1); PLATELET COUNT 277 K/MM3 (134-434); RBC 4.28 M/mm3 (4.00-5.60); RDW 12.7 % (11.9-15.9)
[2019-09-16 09:04] LABS: ALBUMIN 3.3 g/dl (3.4-5.0); BILIRUBIN,TOTAL 0.5 mg/dL (0.2-1); BLOOD UREA NITROGEN 4.1 mg/dL (7-18); CALCIUM 8.3 mg/dL (8.5-10.1); CREATININE 0.9 mg/dL (0.55-1.3); PHOSPHOROUS 3.5 mg/dL (2.5-4.9); POTASSIUM 3.4 mmol/L (3.5-5.1); TOT PROT 6.1 g/dl (6.4-8.2)
[2019-09-16 09:26] LABS: INR 1.13 (0.83-1.09); PROTHROMBIN TIME (PATIENT) 13.4 SEC (9.7-13.0)
[2019-09-16 09:29] LABS: ACTIVATED PTT 34.2 SECONDS (25.2-36.5)
[2019-09-16] MEDS ORDERED: PIPERACILLIN/TAZOB 3.375 GM 3.375 GM in DEXTROSE 5%-WATER - 50 ML IVPB SCH (10:00)
[2019-09-16] MEDS ORDERED: BUPIVACAINE HCL/PF 0.5% (5 MG/ML) 30 ML VIAL IJ ONE (11:11)
[2019-09-16] MEDS ORDERED: BENZOIN TINCTURE SWABSTICK TP ONE (11:21)
--- NOTE | 2019-09-16 11:50 | PN ---
Teaching Attending Note Name of Resident: Mario Soliman ATTENDING PHYSICIAN STATEMENT I saw and evaluated the patient. I reviewed the resident's note and discussed the case with the resident. I agree with the resident's findings and plan as documented. SUBJECTIVE: 34 year old male with no significant PMH/PSH presets with rapid onset Epigastic and RUQ abdominal pain, with associated nausea/vomiting and loose stool. No hematochezia/melena. No hematemesis. No fever/chills. Abdominal pain now resolved, no further nausea/vomiting. OBJECTIVE: Afebrile, Hemodynamically Stable. Last Vital Signs Temp Pulse Resp BP Pulse Ox 97.9 F 67 18 121/75 95 09/16/19 06:45 09/16/19 06:45 09/16/19 06:45 09/16/19 06:45 09/16/19 00:05 Heart - S1, S2, RRR lungs -clear to auscultation Abdomen - Soft, non-tender. Bowel sounds normal. Extremities - No edema, no calf tenderness. Neuro - AAO x 3. Tone/Power normal all 4 extremities. Laboratory Results - last 24 hr 09/15/19 09/15/19 09/16/19 14:40 14:40 07:35 WBC 6.0 RBC 4.28 Hgb 12.9 Hct 36.6 MCV 85.5 MCH 30.0 MCHC 35.1 RDW 12.7 Plt Count 277 MPV 7.7 PT with INR INR PTT (Actin FS) Sodium Potassium Chloride Carbon Dioxide Anion Gap BUN Creatinine Est GFR (CKD-EPI)AfAm Est GFR (CKD-EPI)NonAf Random Glucose Lactic Acid 1.0 Calcium Phosphorus 4.0 Magnesium 2.0 Total Bilirubin AST ALT Alkaline Phosphatase Total Protein Albumin Blood Type Antibody Screen 09/16/19 09/16/19 09/16/19 07:35 07:35 07:35 WBC RBC Hgb Hct MCV MCH MCHC RDW Plt Count MPV PT with INR 13.40 H INR 1.13 H PTT (Actin FS) 34.2 Sodium 142 Potassium 3.4 L Chloride 107 Carbon Dioxide 30 Anion Gap 5 L BUN 4.1 L Creatinine 0.9 Est GFR (CKD-EPI)AfAm 126.90 Est GFR (CKD-EPI)NonAf 109.49 Random Glucose 83 Lactic Acid Calcium 8.3 L Phosphorus 3.5 Magnesium 2.0 Total Bilirubin 0.5 AST 9 L ALT 19 Alkaline Phosphatase 50 Total Protein 6.1 L Albumin 3.3 L Blood Type O POSITIVE Antibody Screen Negative 09/16/19 09:55 WBC RBC Hgb Hct MCV MCH MCHC RDW Plt Count MPV PT with INR INR PTT (Actin FS) Sodium Potassium Chloride Carbon Dioxide Anion Gap BUN Creatinine Est GFR (CKD-EPI)AfAm Est GFR (CKD-EPI)NonAf Random Glucose Lactic Acid Calcium Phosphorus Magnesium Total Bilirubin AST ALT Alkaline Phosphatase Total Protein Albumin Blood Type O POSITIVE Antibody Screen Current Medications Generic Name Dose Route Start Last Admin Trade Name Terrell PRN Reason Stop Dose Admin Acetaminophen 1,000 mg 09/15/19 09:47 Ofirmev Injection - IVPB Q6H PRN PAIN LEVEL 6-10 Heparin Sodium (Porcine) 5,000 unit 09/15/19 15:45 09/15/19 23:04 Heparin - SQ 5,000 unit TID ILDEFONSO Administration Lactated Ringer's 1,000 ml in 1,000 mls @ 200 mls/hr 09/15/19 08:34 09/16/19 06:44 Lactated Ringers Solution IV 200 mls/hr ASDIR ILDEFONSO Administration Piperacillin Sod/Tazobactam 50 mls @ 100 mls/hr 09/16/19 10:00 Sod 3.375 gm/ Dextrose IVPB Q8H-IV ILDEFONSO Protocol Home Medications Medication Instructions Recorded NK [No Known Home Medication] 09/15/19 ASSESSMENT AND PLAN: 34 year old male with no significant PMH/PSH presets with rapid onset Epigastic and RUQ abdominal pain, with associated nausea/vomiting and loose stool. No hematochezia/melena. No hematemesis. No fever/chills. 1. Acute Cholecystitis Afebrile, Hemodynamically Stable Abdo US - Thick-walled distended GB with calculi and sludge suspicious for acute cholecystitis. CT A/P - slightly distended GB with trace pericholecystic fluid and multiple calculi. NPO/IV fluids/IV Zosyn in preparation for OR today. Surgery evaluated - scheduled for OR 09/16/19. 2. Electrolyte disturbances - Hypomagnesemia/Hypophosphatemia - repleted. Hypokalemia - will replete. 3. DVT Px - Heparin SQ
[2019-09-16] MEDS ORDERED: POTASSIUM CHLORIDE TABS 20 MEQ TABLET.ER (FP) PO ONE (11:52)
[2019-09-16] MEDS: KCL 10 MEQ IVPB 10 MEQ/100 ML INFUS.BAG IVPB SCH (13:50)
[2019-09-16] MEDS: HEPARIN NA (PORCINE) 5,000 UNITS/ML 1ML VIAL SQ SCH (14:00)
[2019-09-16] MEDS ORDERED: CEFTRIAXONE 2 GM in DEXTROSE 5%-WATER 100 ML IVPB SCH (14:15)
--- NOTE | 2019-09-16 15:22 | PN ---
Progress Note (short form) - Note Progress Note: ID consult dictated imp/reccd 34 yo man admitted from home with RUQ pain- found to have acute cholycystitis schedule for lap choly today no fevers no prior hospital admissions no recent antibiotics suggest rocephin/flagyl for periop antibiotics further management per surgery Problem List - Problems (1) Cholecystitis Code(s): K81.9 - CHOLECYSTITIS, UNSPECIFIED
--- NOTE | 2019-09-16 15:44 | PN ---
Physical Exam: SUBJECTIVE: Patient seen and examined at the bedside. Patient stated that he felt better. He noted that he had some abdominal discomfort but was much improved compared with admission. Patient denied cp, sob, n/v/c/d, fever, chills. Patient scheduled for OR today with Dr. Gonzalez for cholecystectomy. OBJECTIVE: Vital Signs Period Temp Pulse Resp BP Sys/Rangel Pulse Ox Last 24 Hr 97.9 F-98.8 F 67-83 17-77 121-131/75-85 95-97 GENERAL: The patient is awake, alert, and fully oriented, in no acute distress. HEAD: Normal with no signs of trauma. EYES: PERRL, extraocular movements intact, sclera anicteric, conjunctiva clear. NECK: Trachea midline, full range of motion, supple. LUNGS: Breath sounds equal, clear to auscultation bilaterally, no wheezes, no crackles, no accessory muscle use. HEART: Regular rate and rhythm, S1, S2 without murmur, rub. ABDOMEN: Soft, mildly tender, nondistended, normoactive bowel sounds, no guarding, no rebound, no masses. EXTREMITIES: 2+ pulses, warm, well-perfused, no edema. NEUROLOGICAL: Cranial nerves II through XII grossly intact. 5/5 muscle strength bilaterally upper and lower extremities. PSYCH: Normal mood, normal affect. SKIN: Warm, dry, normal turgor, no rashes or lesions noted. Laboratory Results - last 24 hr 09/15/19 09/16/19 09/16/19 14:40 07:35 07:35 WBC 6.0 RBC 4.28 Hgb 12.9 Hct 36.6 MCV 85.5 MCH 30.0 MCHC 35.1 RDW 12.7 Plt Count 277 MPV 7.7 PT with INR INR PTT (Actin FS) Sodium 142 Potassium 3.4 L Chloride 107 Carbon Dioxide 30 Anion Gap 5 L BUN 4.1 L Creatinine 0.9 Est GFR (CKD-EPI)AfAm 126.90 Est GFR (CKD-EPI)NonAf 109.49 Random Glucose 83 Lactic Acid 1.0 Calcium 8.3 L Phosphorus 3.5 Magnesium 2.0 Total Bilirubin 0.5 AST 9 L ALT 19 Alkaline Phosphatase 50 Total Protein 6.1 L Albumin 3.3 L Blood Type Antibody Screen 09/16/19 09/16/19 09/16/19 07:35 07:35 09:55 WBC RBC Hgb Hct MCV MCH MCHC RDW Plt Count MPV PT with INR 13.40 H INR 1.13 H PTT (Actin FS) 34.2 Sodium Potassium Chloride Carbon Dioxide Anion Gap BUN Creatinine Est GFR (CKD-EPI)AfAm Est GFR (CKD-EPI)NonAf Random Glucose Lactic Acid Calcium Phosphorus Magnesium Total Bilirubin AST ALT Alkaline Phosphatase Total Protein Albumin Blood Type O POSITIVE O POSITIVE Antibody Screen Negative Active Medications Generic Name Dose Route Start Last Admin Trade Name Freq PRN Reason Stop Dose Admin Acetaminophen 1,000 mg 09/15/19 09:47 Ofirmev Injection - IVPB Q6H PRN PAIN LEVEL 6-10 Heparin Sodium (Porcine) 5,000 unit 09/15/19 15:45 09/16/19 14:00 Heparin - SQ Not Given TID ILDEFONSO Lactated Ringer's 1,000 ml in 1,000 mls @ 200 mls/hr 09/15/19 08:34 09/16/19 06:44 Lactated Ringers Solution IV 200 mls/hr ASDIR ILDEFONSO Administration Potassium Chloride 10 meq in 100 mls @ 100 mls/hr 09/16/19 12:45 09/16/19 13: 50 Potassium Chloride 10 Meq Premix Ivpb - IVPB 09/16/19 15:44 100 mls/hr Q60M ILDEFONSO Administration Ceftriaxone Sodium 2 gm/ 100 mls @ 200 mls/hr 09/16/19 14:15 Dextrose IVPB DAILY ILDEFONSO Protocol Metronidazole 500 mg in 100 mls @ 100 mls/hr 09/16/19 14:15 Flagyl 500mg Premixed Ivpb - IVPB Q8H-IV ILDEFONSO ASSESSMENT/PLAN: Juan Dietrich is a 34y/o male with no significant PMH who presents with gradual onset of epigastric cramping that began following eating pizza. CT and U/S show gallbladder wall thickening with stones present and inflammation surrounding. Pt is admitted for acute cholecystitis. Acute cholecystitis - Afebrile, hemodynamically stable, no leukocytosis. Lactic acid elevated on admission, has since resolved - Abd CT showing slightly distended gallbladder with pericholecystic fluid and multiple calculi - gallbladder U/S showing thick walled distended gallbladder with calculi and sludge, suspicious for cholecystitis - NPO for cholecystectomy - IV fluids, LR at 200cc/hr - surgery consulted Dr. Gonzalez, going for cholecystectomy - ID consulted, recommending ceftriaxone, flagyl for kayla-op antibiotics Hypophosphatemia -repleted -repeat labs normal, will follow Hypomagnesemia -repleted -repeat labs normal, will follow DVT Ppx - heparin 5000 units subq tid, held chemical AC prior to surgery F/E/N - LR at 200mL/hr - hypoPhos and hypoMg noted and repleted, continue to monitor electrolyte and replete as necessary - NPO until after surgery Dispo - continue to monitor on med/surg Visit type - Emergency Visit Emergency Visit: No - New Patient This patient is new to me today: Yes Date on this admission: 09/16/19 - Critical Care Critical Care patient: No
[2019-09-16] MEDS ORDERED: DEXTROSE 5%-WATER 100 ML IVPB ONE (16:23)
[2019-09-16] MEDS ORDERED: MIDAZOLAM HCL 2 MG/2 ML SINGLE DOSE VIAL ONE (17:05)
[2019-09-16] MEDS ORDERED: ROCURONIUM BROMIDE 50 MG/5 ML SYRINGE ONE (17:05)
[2019-09-16] MEDS ORDERED: PROPOFOL 20 ML ONE ×2 (17:05→18:30)
[2019-09-16] MEDS ORDERED: DEXAMETHASONE SOD PHOSPHATE 4 MG/1 ML VIAL ONE ×2 (17:07→18:43)
[2019-09-16] MEDS ORDERED: ONDANSETRON 4 MG/2 ML VIAL IVPUSH PRN ×2 (17:42→20:38)
[2019-09-16] MEDS ORDERED: LACTATED RINGERS SOLUTION 1,000 ML IV SCH ×2 (17:45→20:38)
[2019-09-16] MEDS ORDERED: ACETAMINOPHEN INJECTION 100 ML IVPB ONE (17:59)
[2019-09-16] MEDS ORDERED: cefTRIAXone SODIUM 1 GM VIAL IVPB ONE (18:15)
[2019-09-16] MEDS ORDERED: NEOSTIGMINE METHYLSULFATE 0.5 MG/ML - 10 ML MDV ONE (18:32)
[2019-09-16] MEDS ORDERED: GLYCOPYRROLATE 0.2 MG/1 ML VIAL ONE (18:32)
[2019-09-16] MEDS ORDERED: BUPIVACAINE HCL/PF 0.5% (5MG/ML) 10 ML VIAL IJ ONE (19:20)
--- NOTE | 2019-09-16 19:48 | OP ---
Operative Note - Note: Operative Date: 09/16/19 Pre-Operative Diagnosis: Acute cholecystitis Operation: Lap cholecystectomy Post-Operative Diagnosis: Same as Pre-op Surgeon: Tan Gonzalez Marker Maker: Terrance Tracy Anesthesiologist/BACTERIOLOGIST MEDICAL: Nandini Vela Anesthesia: General Specimens Removed: Gall bladder Estimated Blood Loss (mls): 40 Fluid Volume Replaced (mls): 1,000 (LR) Operative Report Dictated: Yes
--- NOTE | 2019-09-16 19:49 | SURG ---
Surgery Automation Controls Engineer Note Automation Controls Engineer: Terrance Tracy PA-C Date of Service: 09/16/19 Diagnosis: Acute Cholecystits Procedure: Larascopic Cholecystectomy I was present for the entirety of the operative procedure. For further detail, please refer to operative report. Visit type - Case Type Case Type: ED Admission - Emergency Emergency Visit: Yes ED Registration Date: 09/15/19 Care time: The patient presented to the Emergency Department on the above date and was hospitalized for further evaluation of their emergent condition. - New patient This patient is new to me today: Yes Date on this admission: 09/16/19
[2019-09-16] MEDS ORDERED: morphine SULFATE 4 MG/ML VIAL IVPUSH PRN (19:52)
[2019-09-16] MEDS ORDERED: IBUPROFEN 800 MG/8 ML IJ IVPB ONE ×2 (19:57→20:39)
[2019-09-16] MEDS ORDERED: LACTATED RINGERS SOLUTION 1,000 ML/1,000 ML INFUS.BAG IV SCH (20:38)
[2019-09-16] MEDS ORDERED: ACETAMINOPHEN 1000 MG/100 ML VIAL (NON FORMULARY) IVPB PRN (20:38)
[2019-09-16 21:39] LABS: BLOOD UREA NITROGEN 5.2 mg/dL (7-18); CALCIUM 8.5 mg/dL (8.5-10.1); CREATININE 0.7 mg/dL (0.55-1.3); POTASSIUM 3.8 mmol/L (3.5-5.1)
[2019-09-16] MEDS ORDERED: HEPARIN NA (PORCINE) 5,000 UNITS/ML 1ML VIAL SQ SCH (22:00)
--- NOTE | 2019-09-17 08:11 | PN ---
Progress Note (short form) - Note Progress Note: Anesthesia Post Op Note Pt seen s/p GA for lap kelli Pt awake alert no complaints denies n/v, no urinary retention, no puritis pain well controlled VSS no apparent anesthesia complications Arthur Zhu.
[2019-09-17 08:37] LABS: HEMATOCRIT 36.1 % (35.4-49); HEMOGLOBIN 12.8 GM/dL (11.7-16.9); MCH 29.9 pg (25.7-33.7); MCHC 35.4 g/dl (32.0-35.9); MEAN CELL VOLUME 84.3 fl (80-96); MEAN PLT VOLUME 7.7 fl (7.5-11.1); PLATELET COUNT 293 K/MM3 (134-434); RBC 4.28 M/mm3 (4.00-5.60)
[2019-09-17] MEDS: KCL 10 MEQ IVPB 10 MEQ/100 ML INFUS.BAG IVPB SCH (08:50)
[2019-09-17 09:00] LABS: BLOOD UREA NITROGEN 7.6 mg/dL (7-18); CALCIUM 8.8 mg/dL (8.5-10.1); CREATININE 0.7 mg/dL (0.55-1.3); MAGNESIUM 1.7 mg/dL (1.8-2.4); PHOSPHOROUS 5.2 mg/dL (2.5-4.9); POTASSIUM 3.9 mmol/L (3.5-5.1)
[2019-09-17] MEDS ORDERED: MAGNESIUM OXIDE 400 MG TABLET (FP) PO ONE (09:05)
[2019-09-17] MEDS ORDERED: CEFTRIAXONE 2 GM in DEXTROSE 5%-WATER 100 ML IVPB SCH (10:00)
--- NOTE | 2019-09-17 10:24 | PN ---
Progress Note (short form) - Note Progress Note: Attending Surgeon POD#1 s/p lap kelli No c/o; tolerated liquids; voided; minimal pain; only at epigastric port site VSS AF abdo-soft; port sites c/d/i o/w negative WBC-normal IMP: doing well post op PLAN Advance diet and d/c planning to f/u in my office next week. Tan Washington> Carlos UCRTIS FACS
--- NOTE | 2019-09-17 10:51 | OP ---
DATE OF OPERATION: 09/16/2019 PREOPERATIVE DIAGNOSIS: Acute cholecystitis. POSTOPERATIVE DIAGNOSIS: Acute cholecystitis. PROCEDURE: Laparoscopic cholecystectomy. SURGEON: Tan Gonzalez MD NEEDLE LEADER: DENIS Reddy ANESTHESIA: General. OPERATIVE FINDINGS: Acute cholecystitis and cholelithiasis. The rest of the findings were unremarkable. DESCRIPTION OF PROCEDURE: The patient was placed on the operating room table in supine position. After the induction of general anesthesia, the patient's abdomen was prepped with ChloraPrep and draped in sterile fashion. Time-out was taken and then pneumoperitoneum established above the umbilicus using a Veress needle. Once 15 mm of intra-abdominal pressure was obtained, a 5-mm port was placed at the umbilicus. Additional lateral 5-mm ports and a subxiphoid 12-mm port were placed and laparoscopy carried out, and the previously noted findings were observed. The gallbladder was placed on cephalad and lateral traction, and dissection was begun at the neck of the gallbladder where the peritoneum was opened medially and laterally using blunt and sharp dissection and electrocautery. Dissection continued in the triangle of Calot where the cystic duct was identified coursing from the neck of the gallbladder distally to the common bile duct. It was dissected proximally and distally for length. Similarly, the artery was similarly identified and dissected. A critical view of safety was taken, and then the cystic duct divided proximally and distally using Endo Cindy after it was clipped twice proximally and distally with large hemoclips. The artery was similarly clipped and divided. Hemostasis was checked for and noted to be good and then the gallbladder was removed from the liver bed in a retrograde fashion using electrocautery. Prior to removal from the edge of the liver, hemostasis was again verified and then the gallbladder removed from the edge of the liver, placed in an EndoCatch, and brought out through the subxiphoid port. Pneumoperitoneum was reestablished, hemostasis verified again, and then the 5-mm lateral and subxiphoid ports were removed under laparoscopic vision without evidence of bleeding from the port sites. The umbilical port was removed and the pneumoperitoneum evacuated. All port sites were infiltrated with 0.5% Marcaine and the skin edges closed with 4-0 Biosyn in a subcuticular and continuous fashion. Steri-Strips and Band-Aid dressings were placed and the procedure terminated at this point and the patient aroused from general anesthesia and transferred to the post anesthesia care unit in stable condition awake and alert. ESTIMATED BLOOD LOSS: 40 mL. REPLACEMENTS: Crystalloid. DRAINS: None. SPECIMENS: Gallbladder and contents to Pathology. I, Tan Gonzalez, was physically present in the operating room from the time the patient was placed on the operating room table until he was transferred to the post anesthesia care unit in my company. MD VENKAT [id number]
--- NOTE | 2019-09-17 11:38 | PN ---
Teaching Attending Note Name of Resident: Mario Soliman ATTENDING PHYSICIAN STATEMENT I saw and evaluated the patient. I reviewed the resident's note and discussed the case with the resident. I agree with the resident's findings and plan as documented. SUBJECTIVE: POD 1 s/p lap kelli. Minimal abdominal discomfort. No nausea/ vomiting. No fever/chills. Tolerating oral intake. OBJECTIVE: Afebrile, Hemodynamically Stable. Last Vital Signs Temp Pulse Resp BP Pulse Ox 98.3 F 97 H 20 127/72 95 09/17/19 09:50 09/17/19 09:50 09/17/19 09:50 09/17/19 09:50 09/16/19 23:00 Heart - S1, S2, RRR lungs - clear to auscultation Abdomen - Soft, trochar sites dressed. Dressings clean and dry. Bowel sounds normal. Extremities - No edema, no calf tenderness. Neuro - AAO x 3. Tone/Power normal all 4 extremities. Laboratory Results - last 24 hr 09/16/19 09/16/19 09/17/19 09:55 20:55 07:45 WBC RBC Hgb Hct MCV MCH MCHC RDW Plt Count MPV Sodium 138 138 Potassium 3.8 3.9 Chloride 106 104 Carbon Dioxide 29 27 Anion Gap 3 L 7 L BUN 5.2 L 7.6 Creatinine 0.7 0.7 Est GFR (CKD-EPI)AfAm 140.71 140.71 Est GFR (CKD-EPI)NonAf 121.41 121.41 Random Glucose 98 102 Calcium 8.5 8.8 Phosphorus 5.2 H Magnesium 1.7 L Blood Type O POSITIVE 09/17/19 07:45 WBC 7.0 RBC 4.28 Hgb 12.8 Hct 36.1 MCV 84.3 MCH 29.9 MCHC 35.4 RDW 13.0 Plt Count 293 MPV 7.7 Sodium Potassium Chloride Carbon Dioxide Anion Gap BUN Creatinine Est GFR (CKD-EPI)AfAm Est GFR (CKD-EPI)NonAf Random Glucose Calcium Phosphorus Magnesium Blood Type Current Medications Generic Name Dose Route Start Last Admin Trade Name Freq PRN Reason Stop Dose Admin Acetaminophen 1,000 mg 09/16/19 20:38 09/17/19 05:44 Ofirmev Injection - IVPB 1,000 mg Q6H PRN Administration PAIN LEVEL 6-10 Fentanyl 50 mcg 09/16/19 20:38 09/16/19 19:50 Sublimaze Injection - IVPUSH 50 mcg [id number] PRN Administration PAIN-PACU ORDER X 4 DOSES ONLY Lactated Ringer's 1,000 mls @ 125 mls/hr 09/16/19 20:38 09/16/19 23:25 Lactated Ringers Solution IV 125 mls/hr ASDIR ILDEFONSO Administration Morphine Sulfate 4 mg 09/16/19 19:52 09/17/19 06:53 Morphine Sulfate IVPUSH 4 mg Q4H PRN Administration PAIN LEVEL 1-5 Ondansetron HCl 4 mg 09/16/19 20:38 Zofran Injection IVPUSH Q6H PRN NAUSEA AND/OR VOMITING Home Medications Medication Instructions Recorded NK [No Known Home Medication] 09/15/19 ASSESSMENT AND PLAN: 34 year old male with no significant PMH/PSH presets with rapid onset Epigastic and RUQ abdominal pain, with associated nausea/vomiting and loose stool. No hematochezia/melena. No hematemesis. No fever/chills. Abdo US - Thick-walled distended GB with calculi and sludge suspicious for acute cholecystitis. CT A/P - slightly distended GB with trace pericholecystic fluid and multiple calculi. 1. Acute Cholecystitis POD 1 s/p lap cholecystectomy Afebrile, Hemodynamically Stable Tolerating oral intake. Advance diet and discharge once tolerated 2. Electrolyte disturbances - Hypomagnesemia - repleted. Medically and Surgically optimized for discharge with discharge instructions and follow up as per Surgery.
--- NOTE | 2019-09-17 15:07 | DS ---
Physical Exam: SUBJECTIVE: Patient seen and examined at the bedside. Post-op day #1 s/p cholecystectomy. Patient stated that he was doing well post-op with some minor pain at the incision sites. Patient stated that he ate well and tolerated clear liquids and soft diet. Denied fever, chills, chest pain, shortness of breath, n/ v/c/d, numbness, tingling, lightheadedness, dizziness, calf pain, back pain. Ambulated well. OBJECTIVE: Vital Signs Period Temp Pulse Resp BP Sys/Rangel Pulse Ox Last 24 Hr 98.0 F-98.6 F 75-97 18-20 124-139/71-90 95-99 PHYSICAL EXAM GENERAL: The patient is awake, alert, and fully oriented, in no acute distress. HEAD: Normal with no signs of trauma. EYES: PERRL, extraocular movements intact, sclera anicteric, conjunctiva clear. NECK: Trachea midline, full range of motion, supple. LUNGS: Breath sounds equal, clear to auscultation bilaterally, no wheezes, no crackles, no accessory muscle use. HEART: Regular rate and rhythm, S1, S2 without murmur, rub. ABDOMEN: Soft, mildly tender at incision sites on the R side of the abdomen, nondistended, normoactive bowel sounds, no guarding, no rebound, no masses. EXTREMITIES: 2+ pulses, warm, well-perfused, no edema. NEUROLOGICAL: Cranial nerves II through XII grossly intact. 5/5 muscle strength bilaterally upper and lower extremities. PSYCH: Normal mood, normal affect. SKIN: Warm, dry, normal turgor, no rashes or lesions noted. LABS Laboratory Results - last 24 hr 09/16/19 09/17/19 09/17/19 20:55 07:45 07:45 WBC 7.0 RBC 4.28 Hgb 12.8 Hct 36.1 MCV 84.3 MCH 29.9 MCHC 35.4 RDW 13.0 Plt Count 293 MPV 7.7 Sodium 138 138 Potassium 3.8 3.9 Chloride 106 104 Carbon Dioxide 29 27 Anion Gap 3 L 7 L BUN 5.2 L 7.6 Creatinine 0.7 0.7 Est GFR (CKD-EPI)AfAm 140.71 140.71 Est GFR (CKD-EPI)NonAf 121.41 121.41 Random Glucose 98 102 Calcium 8.5 8.8 Phosphorus 5.2 H Magnesium 1.7 L HOSPITAL COURSE: Juan Olmstead is a 34 year old with no significant past medical history who presented with severe epigastric pain. Presented with lactic acid on admission that resolved with fluids. Abdominal CT showed slightly distended gallbladder with pericholecystic fluid and multiple calculi. Gallbladder U/S showed thick walled gallbladder with calculi and sludge suspicious for cholecystitis. Patient was seen by Dr. Gonzalez (surgery) who recommended the patient for cholecystectomy. Patient was optimized for surgery and underwent cholecystectomy. Patient received kayla-operative antibiotics. Post-op patient was able to tolerate clear liquids and soft diet. During hospitalization patient had hypophosphatemia and hypomagnesemia which was successfully repleted. Patient was asked to follow up with Dr. Gonzalez and his primary care physician within 7-10 days after discharge. Patient was told to follow a high-fiber diet, avoid heavy lifting, wound care of the incision sites and reaffirmed the importance of follow up. Patient understood, agreed to, and reiterated the plan. Patient was discharged in stable condition. Date of Admission:09/15/19 Date of Discharge: 09/17/19 Minutes to complete discharge: 35 Discharge Summary Problems reviewed: Yes Reason For Visit: CHOLECYSTITIS Condition: Improved - Instructions Diet, Activity, Other Instructions: Dr. Gonzalez Discharge Instructions Dear JUAN OLMSTEAD, Post Operative Instructions Physical activity Resume your normal everyday activity as tolerated no heavy lifting or exercise until seen by your surgeon. You may walk unlimited amounts of and climb stairs. You may resume driving the car when you feel safe and comfortable behind the wheel. Wound care If you have a bandage, leave it on, and keep dry for 48 - 72 hours. After that time discard the outer bandage. If there are tapes on the skin under the outer bandage, leave them in place. They will peel off in the next 7 to 10 days. Do Not peel them off. You may shower 2 days after surgery. If there are tapes present on the skin, they can get wet. Diet There are no dietary restrictions. Eat healthy, high-fiber foods. Drink 6 to 8 glasses of liquid each day. This will assist in keeping your bowels are regular. Pain management You may take Tylenol or acetaminophen or Ibuprofen (for example, Motrin, Advil etc.) Any pain prescription medication ordered should be taken as prescribed for moderate to severe pain. Call Dr. Gonzalez for any of the following: Severe pain not relieved by medication Fever of 101 or higher Excessive bleeding or drainage on dressing Inability to urinate Call the office at [phone] for a post operative appointment in 7 - 10 days. Please make an appointment with your primary care provider. If you do not currently have one, you can be seen at the [facility] residents clinic located at [address] [place] [address]. Please call to make an appointment. Referrals: [facility] [place] [Provider Group] - 1 Week Tan Gonzalez MD [Staff Physician] - 1 Week Disposition: HOME - Home Medications Comprehensive Discharge Medication List: Ambulatory Orders NK [No Known Home Medication] 09/15/19 Problem List - Problems (1) Cholecystitis Code(s): K81.9 - CHOLECYSTITIS, UNSPECIFIED This patient is new to me today: No Emergency Visit: Yes ED Registration Date: 09/15/19 Care time: The patient presented to the Emergency Department on the above date and was hospitalized for further evaluation of their emergent condition. Critical Care patient: No - Discharge Referral Referred to [facility] No
[2019-09-17 16:04] VITALS: BP 114/62; PULSE 91; TEMP 98.5
--- NOTE | 2019-09-18 17:59 | PATH ---
Surgical Pathology Report Patient Name: ADRI OLMSTEAD [facility]. Rec. #: [id number] /Age/Gender: 1985 (Age: 34) / M Account: [id number] Location: [address] [place] [address] Taken: 09/16/2019 Received: 09/17/2019 Reported: 09/18/2019 Physicians: MD Solomon Kaur MD Specimen(s) Received GALLBLADDER Clinical History Cholecystitis Final Diagnosis GALLBLADDER, LAPAROSCOPIC CHOLECYSTECTOMY: ACUTE AND CHRONIC CHOLECYSTITIS WITH CHOLELITHIASIS. Electronically Signed Dianne Paniagua M.D. Gross Description Received in formalin, labeled "gallbladder," is an 8.5 x 3.8 x 3.5 cm. gallbladder with a 0.2 cm. in length portion of cystic duct attached. The outer surface is crocker-pink and varies from smooth to shaggy. The lumen contains green, tenacious bile as well as abundant yellow, irregular, bosselated choleliths ranging from 0.1-0.9 cm in greatest dimension. The mucosa is dark green and velvety. The wall of the gallbladder averages 0.2 cm. in thickness. Project Manager Finance sections are submitted in one cassette. 09/17/201909/17/2019
== END 2019-09-17 16:44 | disposition home or self-care (01) | DRG 419 ==
LOC: JER 01:42 → JERBED 05:18 → J5S 09-16 00:14
PROC: 0FT44ZZ Resection of Gallbladder, Percutaneous Endoscopic Approach (ICD-10-PCS; principal; 2019-09-16 12:00)
DX: K80.00 Calculus of gallbladder with acute cholecystitis without obstruction (principal); E83.39 Other disorders of phosphorus metabolism; E83.42 Hypomagnesemia; E87.6 Hypokalemia
CPT/HCPCS: 36415; 74177-TC; 76705-TC; 80048; 80053; 81003; 82550; 83605; 83690; 83735; 84100; 84484; 85025; 85027; 85610; 85730; 86850; 86900; 86901; 88304-TC; 93005; 93010; 94760; 99284-25; J0131; J1644; J7030